=== PATIENT | female | born 1970 | race African-American/Black ===

== ENCOUNTER 2022-06-22 10:23 | Emergency (ER) | payer MEDICAID ==
[~2022-06-22] VITALS: Ht 149.9 cm; Wt 64.0 kg
[2022-06-22 10:30] VITALS: BP 145/100
[2022-06-22 12:58] LABS: BASOPHILS % 0.6 % (0.0-2.0); EOSINOPHILS % 0.5 % (0.0-5.0); HEMATOCRIT. 41.3 % (36.0-48.0); HEMOGLOBIN. 14.2 g/dL (12.0-16.0); LYMPHOCYTES % 20.8 % (20.0-50.0); MEAN CORPUSCULAR HEMOGLOBIN 30.2 pg (28.0-32.0); MEAN CORPUSCULAR VOLUME 88.1 fL (81.0-99.0); MEAN PLATELET VOLUME 7.7 fl (7.4-10.4); MONOCYTES % 3.9 % (2.0-8.0); NEUTROPHILS % 74.2 % (40.0-76.0); PLATELET 296 x1000/uL (130-400); RED BLOOD CELL COUNT 4.69 mill/uL (4.2-5.4); RED CELL DISTRIBUTION WIDTH 13.2 % (11.6-14.6)
[2022-06-22 13:05] LABS: CHLORIDE 107 mEq/L (98-107)
[2022-06-22 13:08] LABS: HCG SCREEN NEGATIVE
[2022-06-22 14:46] LABS: CLARITY URINE CLEAR (CLEAR); COLOR URINE YELLOW (YELLOW); KETONES URINE NEGATIVE (NEGATIVE); LEUKOCYTE ESTERASE URINE NEGATIVE (NEGATIVE); NITRITE URINE NEGATIVE (NEGATIVE); OCCULT BLOOD URINE NEGATIVE (NEGATIVE); PROTEIN URINE NEGATIVE (NEGATIVE); SPECIFIC GRAVITY URINE 1.013 (1.005-1.030); UROBILINOGEN URINE 0.2 E.U./dL (0.2-1.0)
[2022-06-22] MEDS ORDERED: HYDROCODONE/ACETAMINOPHEN 5/325MG TABLET PO ONE (15:00)
[2022-06-22] MEDS ORDERED: ONDANSETRON 4MG ODT PO ONE (15:00)
[2022-06-22 15:33] LABS: *AMPHETAMINES SCREEN URINE NEGATIVE (NEGATIVE); *BARBITURATES SCREEN URINE NEGATIVE (NEGATIVE); *BENZODIAZEPINES SCREEN URINE NEGATIVE (NEGATIVE); *COCAINE SCREEN URINE NEGATIVE (NEGATIVE); CANNABINOID URINE SCREEN PRESUMTIVE POSITIVE (NEGATIVE); METHADONE URINE SCREEN NEGATIVE (NEGATIVE); OPIATES URINE SCREEN NEGATIVE (NEGATIVE); PHENCYCLIDINE URINE SCREEN NEGATIVE (NEGATIVE)
[2022-06-22] MEDS ORDERED: HYDR-4001 MT (16:20)
== END 2022-06-22 16:39 | disposition home or self-care (01) ==
LOC: ER 10:23
DX: R10.2 Pelvic and perineal pain (principal); Z98.890 Other specified postprocedural states
CPT/HCPCS: 36415; 76830; 76856; 80053; 80305; 81003; 81025; 83690; 84703; 85025; 99284; Q0162

== ENCOUNTER 2022-07-02 13:11 | Emergency (ER) | payer MEDICAID, OTHER ==
[~2022-07-02] VITALS: Ht 152.4 cm; Wt 65.0 kg
[~2022-07-02 13:11] MED LIST: HYDR-4001 MT
[2022-07-02 13:20] VITALS: BP 149/90
[2022-07-02] MEDS ORDERED: KETOROLAC 30MG/ML VIAL IV STA (15:24)
[2022-07-02] MEDS ORDERED: ONDANSETRON HCL 4MG/2ML INJ IV STA (15:24)
[2022-07-02] MEDS ORDERED: MORPHINE SULFATE 4 MG/ML CPJ (NOT FOR IM USE) IV STA (15:24)
[2022-07-02] MEDS ORDERED: SODIUM CHLORIDE 0.9% 1,000 ML IV ONE (15:30)
[2022-07-02 16:21] LABS: CLARITY URINE CLEAR (CLEAR); COLOR URINE YELLOW (YELLOW); KETONES URINE NEGATIVE (NEGATIVE); LEUKOCYTE ESTERASE URINE NEGATIVE (NEGATIVE); NITRITE URINE NEGATIVE (NEGATIVE); OCCULT BLOOD URINE NEGATIVE (NEGATIVE); PH URINE 5.5 (4.5-8.0); PROTEIN URINE NEGATIVE (NEGATIVE); SPECIFIC GRAVITY URINE 1.015 (1.005-1.030); UROBILINOGEN URINE 0.2 E.U./dL (0.2-1.0)
[2022-07-02 16:24] LABS: EOSINOPHILS % 1.5 % (0.0-5.0); HEMATOCRIT. 42.7 % (36.0-48.0); HEMOGLOBIN. 14.3 g/dL (12.0-16.0); MEAN CORPUSCULAR HEMOGLOBIN 29.8 pg (28.0-32.0); MEAN CORPUSCULAR VOLUME 89.2 fL (81.0-99.0); MEAN PLATELET VOLUME 8.2 fl (7.4-10.4); MONOCYTES % 3.8 % (2.0-8.0); NEUTROPHILS % 53.7 % (40.0-76.0); PLATELET 327 x1000/uL (130-400); RED BLOOD CELL COUNT 4.79 mill/uL (4.2-5.4); RED CELL DISTRIBUTION WIDTH 13.3 % (11.6-14.6)
[2022-07-02 16:27] LABS: CHLORIDE 105 mEq/L (98-107)
[2022-07-02 16:48] LABS: HCG SCREEN NEGATIVE
[2022-07-02] MEDS ORDERED: IBUP-2028 MT (17:41)
[2022-07-02] MEDS ORDERED: CARB-173 EACH EAR (17:48)
== END 2022-07-02 18:16 | disposition home or self-care (01) ==
LOC: ER 13:28
DX: K57.30 Diverticulosis of large intestine without perforation or abscess without bleeding (principal); J02.9 Acute pharyngitis, unspecified; H61.21 Impacted cerumen, right ear; H93.11 Tinnitus, right ear; I10 Essential (primary) hypertension
CPT/HCPCS: 36415; 74176; 76830; 76856; 80053; 81003; 83690; 84703; 85025; 87070; 87430; 96361; 96374; 99285; J1885; J7030; J2270; J2405

== ENCOUNTER 2024-12-24 09:13 | Emergency (ER) | payer OTHER ==
[~2024-12-24] VITALS: Ht 157.5 cm; Wt 60.0 kg
[~2024-12-24 09:13] MED LIST changes: +DEBROX EACH EAR; +IBUP-2028 MT
[2024-12-24 09:23] VITALS: O2SAT 100
[2024-12-24] MEDS ORDERED: ISOP30DR12 RIGHT EAR (15:13)
[2024-12-24] MEDS ORDERED: AMOX50SU15 MT (15:13)
[2024-12-24 15:44] VITALS: BP 136/92; PULSE 87; RESP 18; TEMP 37.1; O2SAT 100
== END 2024-12-24 15:48 | disposition home or self-care (01) ==
LOC: ER 09:13
DX: H92.01 Otalgia, right ear (principal); I10 Essential (primary) hypertension
CPT/HCPCS: 69209; 81025; 99284